=== PATIENT | female | born 1975 | race African-American/Black ===

== ENCOUNTER 2018-02-10 11:40 | Emergency (ER) | payer MEDICAID, OTHER ==
[~2018-02-10] VITALS: Ht 170.2 cm; Wt 74.8 kg
[2018-02-10 11:45] VITALS: BP 156/110
--- NOTE | 2018-02-10 12:20 | Emergency Room Report ---
History of Present Illness General Chief Complaint: Pain Source: Patient Present Illness HPI 43-year-old female brought in from urgent care clinic by ambulance requesting methadone Patient states she "raced" to get the methadone clinic before closure at 10, however they would not give her 80 mg of methadone. She does not have any paperwork to verify her dose, despite being patient outside clinic since September 2017. She states she is "having withdrawal". Last dose was yesterday. States she is "very anxious and nauseous" but denies goosebumps, vomiting, fever or chills or palpitations. She states she is able to get to the clinic tomorrow for next dose. Allergies: Coded Allergies: METOCLOPRAMIDE (Unverified Allergy, Unknown, 02/10/18) NSAIDS (NON-STEROIDAL ANTI-INFLAMMA (Unverified Allergy, Unknown, 02/10/18) PENICILLINS (Unverified Allergy, Unknown, 02/10/18) PROCHLORPERAZINE (Unverified Allergy, Unknown, 02/10/18) Patient History Past Medical History: other - Chronic pain Past Surgical History: none Pertinent Family History: none Social History: Denies: smoking, alcohol use, drug use Last Menstrual Period: 01/30/18 Now: No Reviewed Nursing Documentation: PMH: Agreed; PSxH: Agreed Review of Systems All Other Systems: negative except mentioned in HPI Physical Exam Vital Signs Date Time Temp Pulse Resp B/P (MAP) Pulse Ox O2 Delivery O2 Flow Rate FiO2 02/10/18 11:36 97.2 130 20 156/110 98 Room Air 97.2 Sp02 EP Interpretation: reviewed, normal General Appearance: normal inspection, well appearing, no apparent distress, alert, GCS 15, non-toxic Head: normocephalic, atraumatic Eyes: bilateral eye PERRL, bilateral eye EOMI ENT: normal ENT inspection, hearing grossly normal, normal pharynx, no angioedema, normal voice, TMs + canals normal, uvula midline, moist mucus membranes Neck: normal inspection, full range of motion, supple, thyroid normal, no meningismus, no bony tend Respiratory: normal inspection, lungs clear, normal breath sounds, no rhonchi, no respiratory distress, no retraction, no accessory muscle use, no wheezing, speaking full sentences Cardiovascular #1: regular rate, rhythm, no edema, no JVD, normal capillary refill Gastrointestinal: normal inspection, normal bowel sounds, non tender, soft, no mass, no peritonitis, non-distended, no guarding, no hernia, no pulsatile mass Genitourinary: no CVA tenderness Musculoskeletal: normal inspection, back normal, normal range of motion, no calf tenderness, pelvis stable, Gagandeep's Sign negative Neurologic: normal inspection, alert, oriented x3, responsive, liner roll changer III-XII nml as tested, motor strength/tone normal, cerebellar normal, normal gait, speech normal Psychiatric: normal inspection, judgement/insight normal, mood/affect normal, no suicidal/homicidal ideation, no delusions Skin: normal inspection, normal color, no rash Lymphatic: normal inspection, no adenopathy Medical Decision Making Diagnostic Impression: Primary Impression: Medication refill ER Course initial presenting heart Of 130 down to 113 without ER intervention Rest of vitals stable, afebrile low suspicion at patient is in withdrawal given that she had dose of methadone yesterday Advised patient we don't give methadone in this ER, also she cannot verify dose I tried calling clinic however they are closed Offered to treat nausea was Apolinar, patient refused She will go to clinic tomorrow Asked for, received bus [employer] ER course: Patient has remained stable during ED stay. Disposition: Patient is to be discharged to home. Patient is instructed to follow up with their primary care doctor within 5 days. Strict return precautions discussed with patient such as fever, chills, worsening/severe pain, nausea, vomiting, which may indicate severe illness. Patient verbalizes understanding and agrees with plan. Please note that this Emergency Department Report was dictated using [employer] software, occasionally this can lead to erroneous entry secondary to interpretation by the dictation equipment Last Vital Signs Date Time Temp Pulse Resp B/P (MAP) Pulse Ox O2 Delivery O2 Flow Rate FiO2 02/10/18 11:45 97.2 113 20 156/110 98 Room Air 97.2 Status: improved Disposition: HOME, SELF-CARE Condition: Improved Patient Instructions: Medicine Refill at the Emergency Department ABDIAS REID M.D. Feb 10, 2018 12:20
[2018-02-10 12:48] VITALS: BP 156/100
== END 2018-02-10 12:48 | disposition home or self-care (01) ==
LOC: EDBD 11:40 → EMR 12:00
DX: Z76.0 Encounter for issue of repeat prescription (principal); G89.29 Other chronic pain
CPT/HCPCS: 99282